=== PATIENT | male | born 1945 | race Caucasian/White ===

== ENCOUNTER 2018-08-18 17:29 | Emergency (ER) | payer MEDICARE, OTHER ==
[2018-08-18] MEDS: PHENYLephrine 10% 5 ML OPH LEFT EYE (22:19)
== END 2018-08-18 20:22 | disposition home or self-care (01) ==
LOC: E/R 17:29
DX: H59.323 Postprocedural hemorrhage of eye and adnexa following other procedure, bilateral (principal); I10 Essential (primary) hypertension; I25.10 Atherosclerotic heart disease of native coronary artery without angina pectoris; E11.9 Type 2 diabetes mellitus without complications; Z95.0 Presence of cardiac pacemaker; Z95.1 Presence of aortocoronary bypass graft
CPT/HCPCS: 99282